=== PATIENT | female | born 1995 | race Hispanic/Latino ===

== ENCOUNTER 2018-01-24 10:15 | Outpatient (CLI) | payer OTHER ==
[2018-01-24 10:48] LABS: BHCG - Serum POSITIVE (NEGATIVE); Pregs Control Background? CLEAR/WHITE (CLR/WHITE); Pregs Control Bar Appear? YES (CONTROL BAR)
== END 2018-01-24 10:16 | disposition home or self-care (01) ==
LOC: MADLAB 10:15
DX: Z00.00 Encounter for general adult medical examination without abnormal findings (principal)
CPT/HCPCS: 36415; 84703

== ENCOUNTER 2022-11-30 14:00 | Emergency (ER) | payer BC, OTHER ==
[2022-11-30 14:36] LABS: Hemoglobin 12.8 g/dL (12.0-16.0)
[2022-11-30 14:45] LABS: BHCG - Serum Negative (NEGATIVE); Pregs Control Bar Appear? YES (CONTROL BAR)
[2022-11-30 14:46] LABS: Pregs Control Background? CLEAR/WHITE (CLR/WHITE)
== END 2022-11-30 15:19 | disposition home or self-care (01) ==
LOC: MADERS 14:00
DX: N93.9 Abnormal uterine and vaginal bleeding, unspecified (principal); Z30.432 Encounter for removal of intrauterine contraceptive device
CPT/HCPCS: 36415; 84703; 85014; 85018; 99284

== ENCOUNTER 2023-05-27 17:11 | Emergency (ER) | payer BC, OTHER | END 2023-05-27 20:28 | disposition home or self-care (01) | LOC: MADERS 17:11 | DX: M76.52 Patellar tendinitis, left knee (principal); W52.XXXA Crushed, pushed or stepped on by crowd or human stampede, initial encounter; Y93.64 Activity, baseball ==